=== PATIENT | female | born 1990 | race Two or more races ===

== ENCOUNTER 2019-03-20 14:48 | Emergency (ER) | payer BC, OTHER ==
[~2019-03-20] VITALS: Ht 162.6 cm; Wt 63.5 kg
[2019-03-20 15:08] VITALS: BP 141/62
[2019-03-20] MEDS ORDERED: KETOROLAC TROMETH 60MG/2ML VIAL IM ONE (16:00)
== END 2019-03-20 17:47 | disposition home or self-care (01) ==
LOC: EDBD 14:48 → ER 14:55
DX: T14.8XXA Other injury of unspecified body region, initial encounter (principal); S00.83XA Contusion of other part of head, initial encounter; S90.812A Abrasion, left foot, initial encounter; R51 Headache; M54.2 Cervicalgia; V49.9XXA Car occupant (driver) (passenger) injured in unspecified traffic accident, initial encounter; Y93.89 Activity, other specified; Y92.481 Parking lot as the place of occurrence of the external cause; Y99.8 Other external cause status
CPT/HCPCS: 72040; 73590; 96372; 99283; J1885